=== PATIENT | male | born 1970 | race Caucasian/White ===

== ENCOUNTER 2017-03-28 19:44 | Emergency (ER) | payer BC ==
[~2017-03-28] VITALS: Ht 172.7 cm; Wt 80.0 kg
[~2017-03-28 19:44] MED LIST: ALEVE220 MG PO; BACTRIM,SEPT1 TABLET PO; BENTYL10 MG PO; CELEXA20 MG PO; CIPRO500 MG PO; FLAGYL500 MG PO; Stool
[2017-03-28 20:44] LABS: ADD MIUA? NO; BILIRUBIN NEGATIVE; BLOOD NEGATIVE; COLOR STRAW ((YELLOW)); GLUCOSE (STRIP) NEGATIVE; KETONES NEGATIVE; LEUKOCYTES NEGATIVE; NITRITE NEGATIVE; PROTEIN (STRIP) NEGATIVE; SPECIFIC GRAVITY 1.003 (1.000-1.030); UCUL ADDED? NO; UROBILINOGEN 0.2 MG/DL (0.2-1.0)
[2017-03-28] MEDS ORDERED: CLEOCIN300 MG PO (23:05)
[2017-03-28 23:23] VITALS: BP 93/74
[2017-03-30 13:25] LABS: CHLAMYDIA TRACHOMATIS NEGATIVE; NEISSERIA GONORRHOEAE NEGATIVE
== END 2017-03-28 23:24 | disposition home or self-care (01) ==
LOC: EME 19:44
PROVIDERS: Physician Assistant
DX: N49.2 Inflammatory disorders of scrotum (principal); L72.3 Sebaceous cyst; F32.9 Major depressive disorder, single episode, unspecified; F17.200 Nicotine dependence, unspecified, uncomplicated
CPT/HCPCS: 76870; 81003; 87491; 87591; 99281; 99284